=== PATIENT | female | born 1980 | race African-American/Black ===

== ENCOUNTER 2021-09-27 05:20 | Inpatient (IN) ==
[2021-09-21 15:56] LABS: Bacteria,Urine Occasional /HPF (Few); Hyaline Casts,Urine 1 /LPF (0-3); Mucus,Urine Occasional /LPF (Occasional); Squamous Epithelial Cell,Urine Occasional /HPF (0-10); Urine Appearance Clear (Clear); Urine Color Yellow (Yellow)
[2021-09-21 15:57] LABS: Basophils # 0.1 10*3/uL (0.0-0.2); Basophils % 0.7 % (0.0-0.8); Bilirubin,Urine Negative (Negative); Blood, Urine Moderate mg/dL (Negative); Eosinophils # 0.1 10*3/uL (0.0-0.87); Eosinophils % 1.5 % (0.00-10.9); Glucose,Urine (UA) Negative (Negative); Hematocrit 35.3 VOL% (35.7-47.0); Hemoglobin 11.6 GM/DL (12.0-16.0); Immature Granulocytes % 0.2 %; Immature Granulocytes Absolute 0.02 #; Ketones,Urine Negative (Negative); Lymphocytes # 2.6 10*3/uL (1.4-4.0); Lymphocytes % 30.5 % (21.3-54.2); Mean Corpuscular HGB Conc 32.9 GM/DL (32-36); Mean Corpuscular Volume 90.1 FL (87-102); Mean Platelet Volume 9.7 FL (9.6-12.0); Monocytes # 0.5 10*3/uL (0.11-0.8); Monocytes % 5.7 % (1.7-12.7); Neutrophils % 61.4 % (38.7-73.9); Nitrite,Urine Negative (Negative); Platelet Count 670 T/CUMM (130-400); Protein,Urine Negative (Negative); Red Blood Count 3.92 MC/CUMM (3.8-5.5); Red Cell Distribution Width 19.7 % (9.3-17.3); Urine Specific Gravity 1.015 (1.001-1.035); Urine Urobilinogen 0.2 eU/dL (<2.0); White Blood Count 8.5 T/CUMM (4-12)
[2021-09-21 16:07] LABS: INR 0.9; PT Patient Result 10.5 SECS (10.5-12.0); Partial Thromboplastin Time 27.9 SECS (23.8-32.1)
[2021-09-21 16:13] LABS: Calcium 8.8 MG/DL (8.5-10.1); Osmolality,Calculated 273.5 MOS/KG (273-304); Potassium 3.6 MMOL/L (3.5-5.1)
[2021-09-27] MEDS ORDERED: propofoL 200 MG/20 ML VIAL IV ONE (06:13)
[2021-09-27] MEDS ORDERED: fentaNYL 250 MCG/5 ML VIAL ONE (06:13)
[2021-09-27] MEDS ORDERED: SEVOFLURANE 1 UNIT/15 MINUTE INH ONE (06:13)
[2021-09-27] MEDS ORDERED: LIDOCAINE 2% 5 ML VIAL ONE (06:13)
[2021-09-27] MEDS ORDERED: ROCURONIUM 50 MG/5 ML VIAL IV ONE (06:13)
[2021-09-27] MEDS ORDERED: MIDAZOLAM 2 MG/2 ML VIAL ONE (06:13)
[2021-09-27] MEDS ORDERED: ONDANSETRON 4 MG/2 ML VIAL ONE (06:13)
[2021-09-27] MEDS ORDERED: DEXAMETHASONE 4 MG/1 ML VIAL ONE (06:19)
[2021-09-27] MEDS ORDERED: LIDOCAINE 1% 5 ML VIAL ONE (06:19)
[2021-09-27] MEDS ORDERED: ROPIVACAINE 0.5% 30 ML VIAL ONE (06:20)
[2021-09-27] MEDS ORDERED: FAMOTIDINE 20 MG TABLET ONE (06:26)
[2021-09-27] MEDS ORDERED: GABAPENTIN 400 MG CAPSULE PO ONE (06:29)
[2021-09-27] MEDS ORDERED: ACETAMINOPHEN 500 MG TABLET PO ONE (06:29)
[2021-09-27] MEDS ORDERED: FAMOTIDINE 20 MG TABLET PO ONE (06:29)
[2021-09-27] MEDS ORDERED: DIAZEPAM 5 MG TABLET PO ONE (06:29)
[2021-09-27] MEDS ORDERED: ACETAMINOPHEN 500 MG TABLET ONE (06:31)
[2021-09-27] MEDS ORDERED: DIAZEPAM 5 MG TABLET ONE (06:31)
[2021-09-27] MEDS ORDERED: GABAPENTIN 400 MG CAPSULE ONE (06:31)
[2021-09-27] MEDS ORDERED: LACTATED RINGERS 1,000 ML IV SCH (07:00)
[2021-09-27] MEDS ORDERED: LACTATED RINGERS 1,000 ML IV ONE (07:46)
[2021-09-27] MEDS ORDERED: GLYCOPYRROLATE 0.4 MG/2 ML VIAL ONE (08:37)
[2021-09-27] MEDS ORDERED: NEOSTIGMINE 10 MG/10 ML VIAL ONE (08:37)
[2021-09-27] MEDS ORDERED: fentaNYL 100 MCG/2 ML VIAL ONE (08:50)
[2021-09-27] MEDS ORDERED: BENZOCAINE/MENTHOL LOZENGE 18/BOX PO PRN (09:06)
[2021-09-27] MEDS ORDERED: ONDANSETRON 4 MG/2 ML VIAL IV PRN ×2 (09:06→09:19)
[2021-09-27] MEDS ORDERED: ACETAMINOPHEN 325 MG TABLET PO PRN (09:06)
[2021-09-27] MEDS ORDERED: BISACODYL 10 MG SUPP RECTAL PRN (09:06)
[2021-09-27] MEDS ORDERED: IBUPROFEN 800 MG TABLET PO PRN (09:06)
[2021-09-27] MEDS ORDERED: HYDROmorphone 1 MG/1 ML SYRINGE ONE (09:16)
[2021-09-27] MEDS: HYDROmorphone 1 MG/1 ML SYRINGE IV PRN ×4 (09:20→09:44)
[2021-09-27] MEDS ORDERED: MEPERIDINE 50 MG/1 ML VIAL IV PRN (09:42)
[2021-09-27] MEDS ORDERED: MEPERIDINE 25 MG/1 ML VIAL ONE (09:52)
[2021-09-27] MEDS: LACTATED RINGERS 1,000 ML IV SCH ×2 (11:30→20:17)
[2021-09-27] MEDS ORDERED: HYDROmorphone 1 MG/1 ML SYRINGE IV PRN (12:52)
[2021-09-27] MEDS: KETOROLAC 30 MG/1 ML VIAL IV PRN (20:22)
[2021-09-28] MEDS: oxyCODONE/ACETAMINOPHEN 5-325 MG TABLET PO PRN ×4 (00:46→23:50)
[2021-09-28 07:22] LABS: Basophils % 0.2 % (0.0-0.8); Eosinophils % 0.2 % (0.00-10.9); Hemoglobin 9.9 GM/DL (12.0-16.0); Immature Granulocytes % 0.6 %; Lymphocytes # 2.4 10*3/uL (1.4-4.0); Lymphocytes % 15.1 % (21.3-54.2); Mean Corpuscular HGB Conc 31.9 GM/DL (32-36); Mean Corpuscular Volume 92.3 FL (87-102); Mean Platelet Volume 9.4 FL (9.6-12.0); Monocytes # 0.9 10*3/uL (0.11-0.8); Monocytes % 5.6 % (1.7-12.7); Neutrophils % 78.3 % (38.7-73.9); Platelet Count 570 T/CUMM (130-400); Red Blood Count 3.36 MC/CUMM (3.8-5.5); Red Cell Distribution Width 19.8 % (9.3-17.3); White Blood Count 15.8 T/CUMM (4-12)
[2021-09-28] MEDS: MAGNESIUM HYDROXIDE SUSP 30 ML UDCUP PO PRN ×2 (09:22→20:30)
[2021-09-28] MEDS: DOCUSATE SODIUM 100 MG CAPSULE PO PRN ×2 (09:22→20:30)
[2021-09-28] MEDS ORDERED: MAGNESIUM CITRATE 300 ML BOTTLE PO ONE (22:30)
[2021-09-28] MEDS: KETOROLAC 30 MG/1 ML VIAL IV PRN (23:47)
[2021-09-29 07:08] VITALS: BP 129/68
[2021-09-29] MEDS: oxyCODONE/ACETAMINOPHEN 5-325 MG TABLET PO PRN (09:36)
== END 2021-09-29 11:45 | disposition home or self-care (01) | DRG 743 ==
LOC: N.OR 05:20 → N.SDSINP 05:21 → EDSTATUS 07:30 → N.OB 08:50
PROVIDERS: ADMIT Specialist; ATTEND Specialist